=== PATIENT | female | born 1960 | race African-American/Black ===

== ENCOUNTER → 2016-11-05 | Outpatient (CLI) | payer OTHER ==
[~2016-11-05] MED LIST: AMITRIPTYLINE H25 M4 PO; ARIMIDEX1 MG PO; AROMASIN25 MG PO; CALCIUM 600 +1 EAC1 PO; COLACE 100 MG100 MG PO; CYMBALTA20 MG PO; DIAZEPAM 10 MG10 M1 PO; ENDOCET 7.5-321 EACH PO; EXCEDRIN MIGRA1 EAC1 PO; FLONASE 0.05%50 MCG NASAL; KEFLEX500 MG PO; LASIX 40 MG TAB40 M2 PO; LEVAQUIN 500 M500 MG PO; MOBIC15 MG PO; NEURONTIN 300300 M1 PO; NORCO 5-325 TA1 EACH PO; OMEPRAZOLE40 MG PO; OXECTA5 MG PO; PHENERGAN 25 MG25 M1 PO; POTASSIUM20 PO; PREDNISONE 20 M20 M1 PO; PROAIR HFA8.5 GM INH; PULMICORT0.25 MG/3 INH; QVAR8.7 G1 INH; TRAMADOL 50 MG50 MG PO; VITAMIN D1000 UNI1 PO; VITAMIN D22000 UNIT PO; ZANTAC 150MG T150 M1 PO; ZOFRAN ODT4 MG PO; [UNRECOGNIZED DRUG - OTHER]; [UNRECOGNIZED DRUG - REMARK] PO
== END ==
LOC: RAD 09:55
DX: K59.00 Constipation, unspecified (principal)

== ENCOUNTER 2017-12-23 11:32 | Emergency (ER) | payer OTHER ==
[~2017-12-23] VITALS: Ht 154.9 cm; Wt 98.0 kg
[2017-12-23 12:48] LABS: HEMATOCRIT 41.1 % (37.0-47.0); HEMOGLOBIN 13.5 gm/dL (12.0-15.0); MCH 28.6 pg (26.0-34.0); MCHC 32.8 g/dL (28.0-37.0); MCV 87.3 fL (80.0-100.0); RBC 4.71 mil/uL (4.20-5.00); RDW 14.3 % (10.5-14.5); WBC 5.5 thou/uL (4.0-11.0)
[2017-12-23 12:56] LABS: CALCIUM 9.5 mg/dL (8.5-10.1); CREATININE 0.8 mg/dL (0.6-1.0); POTASSIUM 3.8 mmol/L (3.5-5.1)
[2017-12-23 13:10] LABS: ALBUMIN 3.7 g/dL (3.4-5.0); TOTAL BILIRUBIN 0.3 mg/dL (<0.1-1.0); TOTAL PROTEIN 7.5 g/dL (6.4-8.2)
[2017-12-23 14:00] LABS: URINE BILIRUBIN NEGATIVE (Negative); URINE BLOOD NEGATIVE (Negative); URINE CLARITY CLEAR; URINE COLOR YELLOW; URINE GLUCOSE-RANDOM* NEGATIVE (Negative); URINE KETONES NEGATIVE (Negative); URINE LEUKOCYTES-REFLEX NEGATIVE (Negative); URINE NITRITE-REFLEX NEGATIVE (Negative); URINE PROTEIN (DIPSTICK) NEGATIVE (Negative); URINE SPECIFIC GRAVITY 1.015 (1.005-1.035); URINE UROBILINOGEN 0.2 E.U./dl (0.2-1.0)
[2017-12-23] MEDS ORDERED: CYCLOBENZAPRINE5 MG PO (14:03)
[2017-12-23] MEDS ORDERED: NORCO 10-325 T1 EACH PO (14:03)
== END 2017-12-23 14:40 | disposition home or self-care (01) ==
LOC: ER 11:32
PROVIDERS: Physician Assistant
DX: S33.101A Dislocation of unspecified lumbar vertebra, initial encounter (principal); K21.9 Gastro-esophageal reflux disease without esophagitis; J45.909 Unspecified asthma, uncomplicated; F32.9 Major depressive disorder, single episode, unspecified; M79.7 Fibromyalgia; E89.0 Postprocedural hypothyroidism; Z90.13 Acquired absence of bilateral breasts and nipples; Z88.5 Allergy status to narcotic agent; R10.9 Unspecified abdominal pain; X58.XXXA Exposure to other specified factors, initial encounter; Y93.89 Activity, other specified; Y92.89 Other specified places as the place of occurrence of the external cause; Y99.8 Other external cause status

== ENCOUNTER 2018-09-13 09:31 | Emergency (ER) | payer OTHER ==
[~2018-09-13] VITALS: Ht 154.9 cm; Wt 99.3 kg
[~2018-09-13 09:31] MED LIST changes: +CYCLOBENZAPRINE5 MG PO; +NORCO 10-325 T1 EACH PO
[2018-09-13 09:45] LABS: ABSOLUTE NEUTROPHILS 2.7 thou/uL (1.4-8.2); EOSINOPHILS 1.9 % (0.0-3.0); HEMATOCRIT 40.9 % (37.0-47.0); HEMOGLOBIN 13.6 gm/dL (12.0-15.0); LYMPHOCYTES 46.5 % (24.0-44.0); MCH 28.4 pg (26.0-34.0); MCHC 33.3 g/dL (28.0-37.0); MCV 85.5 fL (80.0-100.0); MONOCYTES 6.2 % (1.0-8.0); PLATELET COUNT 175 thou/uL (150-400); POLYS 44.4 % (36.0-66.0); RBC 4.78 mil/uL (4.20-5.00); WBC 6.1 thou/uL (4.0-11.0)
[2018-09-13 09:52] LABS: CALCIUM 9.4 mg/dL (8.5-10.1); CREATININE 0.9 mg/dL (0.6-1.0); POTASSIUM 4.1 mmol/L (3.5-5.1)
[2018-09-13 09:56] LABS: URINE BILIRUBIN NEGATIVE (Negative); URINE BLOOD NEGATIVE (Negative); URINE CLARITY CLEAR; URINE COLOR YELLOW; URINE GLUCOSE-RANDOM* NEGATIVE (Negative); URINE KETONES NEGATIVE (Negative); URINE LEUKOCYTES NEGATIVE (Negative); URINE NITRITE NEGATIVE (Negative); URINE PROTEIN (DIPSTICK) NEGATIVE (Negative); URINE SPECIFIC GRAVITY 1.025 (1.005-1.035); URINE UROBILINOGEN 0.2 E.U./dl (0.2-1.0)
[2018-09-13 09:58] LABS: ALBUMIN 3.9 g/dL (3.4-5.0); TOTAL BILIRUBIN 0.3 mg/dL (<0.1-1.0); TOTAL PROTEIN 7.5 g/dL (6.4-8.2)
[2018-09-13] MEDS ORDERED: ZANTAC 150MG T150 MG PO (12:31)
[2018-09-13] MEDS ORDERED: ONDANSETRON HCL4 M2 PO (12:31)
[2018-09-13 12:55] VITALS: BP 135/64
== END 2018-09-13 12:56 | disposition home or self-care (01) ==
LOC: ER 09:31
PROVIDERS: Emergency Medicine
DX: R10.13 Epigastric pain (principal); R10.12 Left upper quadrant pain; R10.11 Right upper quadrant pain; R11.2 Nausea with vomiting, unspecified; J45.909 Unspecified asthma, uncomplicated; F32.9 Major depressive disorder, single episode, unspecified; K21.9 Gastro-esophageal reflux disease without esophagitis; G47.30 Sleep apnea, unspecified; M79.7 Fibromyalgia; Z91.041 Radiographic dye allergy status; Z88.5 Allergy status to narcotic agent; Z88.8 Allergy status to other drugs, medicaments and biological substances; Z90.13 Acquired absence of bilateral breasts and nipples; Z90.710 Acquired absence of both cervix and uterus; Z90.89 Acquired absence of other organs; Z87.442 Personal history of urinary calculi; Z98.890 Other specified postprocedural states

== ENCOUNTER → 2018-10-29 | Outpatient (CLI) | payer OTHER ==
[~2018-10-29] VITALS: Ht 154.9 cm; Wt 98.0 kg
[~2018-10-29] MED LIST changes: +COREG25 MG PO; +ONDANSETRON HCL4 M2 PO; +RANITIDINE 150150 M1 PO; +SYMBICORT160 MCG/4. INH; +VENTOLIN HFA 1818 GM INH; +ZANTAC 150MG T150 MG PO
--- NOTE | 2018-10-30 08:14 | P ---
[facility] [place] [address] PROCEDURE REPORT Name: HOMER ARREDONDO Room #: REG [facility]#: [id number] Admission: 10/29/18 ������������������ Attend Phys: Gregorio Ortega MD Discharge: ������������������ Date of : 56 Report #: [id number] THIS REPORT FOR: //name// CC: Brayden Ortega OUTPATIENT UPPER ENDOSCOPY BRIEF HISTORY: The patient is a 58-year-old woman with complaints of dysphagia and painful swallowing. She takes ranitidine twice daily for reflux symptoms. PREOPERATIVE DIAGNOSIS: Dysphagia and odynophagia with reflux symptoms. POSTOPERATIVE DIAGNOSES: 1. Small hiatus hernia. 2. Grade A erosive esophagitis. 3. Mild erythematous antral gastritis. MEDICATIONS: Deep sedation with propofol per anesthesia. SPECIMEN: Biopsies of gastritis. ESTIMATED BLOOD LOSS: 3 mL. PROCEDURE: EGD with biopsy and Becker dilation. FINDINGS: Prior to propofol sedation, the procedure of upper endoscopy was discussed with the patient as well as potential risks and its complications. She indicates she understands and desires to proceed. DESCRIPTION OF PROCEDURE: With the patient in the left lateral decubitus position, the Olympus video endoscope was inserted in the cervical esophagus under direct vision without difficulty. Examination of this organ through its entire length revealed normal esophageal mucosa down to the squamocolumnar junction. A few erosions were seen at the squamocolumnar junction. No ulcers were identified. Findings were consistent with grade A esophagitis. The scope was advanced and a 2-3 cm sliding type hiatus hernia was seen. The mucosa in the hernia was unremarkable. Examination of distal stomach revealed a patchy erythematous gastritis. No ulcers or erosions were seen. There was no evidence of outlet obstruction. Upon retroflexion, no mass lesions were seen. The pylorus, duodenal bulb and postbulbar duodenal sweep were inspected and noted to be unremarkable. The scope was drawn back into the stomach and about to zero in to take biopsies, the patient desaturated requiring respiratory support with anesthesia. The Ambu bag was used. An oral airway was inserted and subsequently nasal airway was inserted. The patient's saturation stabilized and we resumed the procedure. The scope was reinserted. Multiple biopsies were [facility] [address] [place] [address] PROCEDURE REPORT Name: HOMER ARREDONDO Room #: [facility]#: [id number] Admission: 10/29/18 ������������������ Attend Phys: Gregorio Ortega MD Discharge: ������������������ Date of : 56 Report #: [id number]. Also although stricturing was not seen, her esophagus was dilated with passage of 50-Spanish Becker dilator. CONDITION OF THE PATIENT UPON DISCHARGE: Following procedure, the patient drowsy, aroused, conversant and will be discharged home when fully ambulatory. INSTRUCTIONS TO THE PATIENT AND FAMILY AT THE TIME OF DISCHARGE: She has symptoms and does have a few erosions in the esophagus consistent with esophagitis. We will have her start omeprazole initially 40 mg twice daily. If she does well, after a week she may reduce to 40 mg once daily. She also may use the ranitidine on an as needed basis for breakthrough symptoms. She was dilated today and she will return on an as needed basis for dilation due to symptoms of recurrent dysphagia. She will return to the care of Dr. Brayden Cheung and return to see me as needed. ��������������������������������������������� <ELECTRONICALLY SIGNED> ���������������������������������������� By: Gregorio Ortega MD ��������������������������������������������� 10/30/18 0814 1049 0037 Gregorio Ortega MD /nt
--- NOTE | 2018-11-02 16:11 | PATH ---
[facility] [address] [place] [address] PATHOLOGY RPT PROCEDURE Name: HOMER ARREDONDO Room #: REG [facility]#: [id number] ������������������ Admission: 10/29/18 ������������������ Date of : 56 Discharge: Report #: [id number] Path Case #: [id number] [facility] Accession Number: [id number] . 01 Material submitted: . GASTRITIS R/O H PYLORI . 01 Clinical history: . Preop DX: Dysphagia, painful swallowing Postop DX: Gastritis, dysphagia R/O H. pylori . 02 Diagnosis: Gastric mucosa, gastritis rule out H. pylori, endoscopic biopsy: - Mild chronic inflammation. - Negative for intestinal metaplasia or atrophy. - Negative for Helicobacter pylori (properly controlled immunohistochemical stain performed). (IUV:ux interaction designer; 11/02/2018) MBPaolo/11/02/2018 . 02 Electronically signed: . Indy Mattson MD, Pathologist NPI- [id number] . 01 Gross description: . Received in formalin labeled "Homer Arredondo, gastritis R/O H. pylori," is a segment of pale caballero soft tissue measuring 0.9 x 0.2 x 0.2 cm in greatest dimensions. The specimen is submitted entirely in cassette A1. (DAC; 10/30/2018) XDC/XDC . 02 Pathologist provided ICD-10: K29.50 . 02 CPT . 033367, C03757 Specimen Comment: A courtesy copy of this report has been sent to Specimen Comment: [phone], . Specimen Comment: Report sent to / DR LARA Performed at: [address] [id number] MD Bry Galo MD Phone: [phone] Performed at: 02 [facility] [address] [place] [address] PATHOLOGY RPT PROCEDURE Name: HOMER ARREDONDO Room #: REG [facility].#: [id number] ������������������ Admission: 10/29/18 ������������������ Date of : 56 Discharge: Report #: [id number] Path Case #: [id number] [address] [place] [id number] MD Indy Mattson MD Phone: [phone]
== END | disposition home or self-care (01) ==
LOC: GI 10-22 18:05
DX: K29.50 Unspecified chronic gastritis without bleeding (principal); K22.10 Ulcer of esophagus without bleeding; K44.9 Diaphragmatic hernia without obstruction or gangrene; J45.909 Unspecified asthma, uncomplicated; G47.33 Obstructive sleep apnea (adult) (pediatric); J43.9 Emphysema, unspecified; I48.91 Unspecified atrial fibrillation; M79.7 Fibromyalgia; K21.9 Gastro-esophageal reflux disease without esophagitis; Z85.3 Personal history of malignant neoplasm of breast; Z79.01 Long term (current) use of anticoagulants; Z98.0 Intestinal bypass and anastomosis status; Z95.2 Presence of prosthetic heart valve; Z85.038 Personal history of other malignant neoplasm of large intestine; Z90.710 Acquired absence of both cervix and uterus; Z98.890 Other specified postprocedural states; Z79.899 Other long term (current) drug therapy; Z87.442 Personal history of urinary calculi
CPT/HCPCS: 62110; 62900

== ENCOUNTER 2018-12-18 13:24 | Emergency (ER) | payer OTHER ==
[~2018-12-18] VITALS: Ht 154.9 cm; Wt 97.1 kg
[2018-12-18 14:32] LABS: HEMATOCRIT 39.8 % (37.0-47.0); HEMOGLOBIN 13.3 gm/dL (12.0-15.0); MCH 28.6 pg (26.0-34.0); MCHC 33.4 g/dL (28.0-37.0); MCV 85.8 fL (80.0-100.0); RBC 4.64 mil/uL (4.20-5.00); RDW 14.2 % (10.5-14.5); WBC 6.6 thou/uL (4.0-11.0)
[2018-12-18 14:41] LABS: ANION GAP 7 mmol/L (7-16); BUN 15 mg/dL (7-18); CHLORIDE 106 mmol/L (98-107); CO2 28 mmol/L (21-32); GLUCOSE 85 mg/dL (74-106); SODIUM 141 mmol/L (136-145)
[2018-12-18 14:51] LABS: ALBUMIN 3.5 g/dL (3.4-5.0); SGOT 15 U/L (15-37); SGPT 23 U/L (30-65); TOTAL BILIRUBIN 0.3 mg/dL (<0.1-1.0); TOTAL PROTEIN 7.3 g/dL (6.4-8.2); TROPONIN-I <0.06 ng/mL (<0.06)
--- NOTE | 2018-12-18 15:58 | EKG ---
[place] [address] [facility] [place] [address] ELECTROCARDIOGRAM REPORT Name: HOMER ARREDONDO Room #: [facility]#: [id number] ������������������ Admission: 12/18/18 ������������������ Attend Phys: Discharge: ������������������ Date of : 56 Report #: [id number] ����������������������������������������������������������������� [id number] THIS REPORT FOR: //name// [facility] ED Test Date: 2018-12-18 Test Time: 13:34:14 Pat Name: HOMER ARREDONDO Department: Room: Gender: F Manager Hair: HEMANTH : 1960 Requested By: Ирина De Jesus Order Number: [id number] MD: Mark Redd Measurements Intervals [place] Rate: 89 P: 55 [place]: 173 QRS: 26 QRSD: 86 T: 52 QT: 367 QTc: 447 Interpretive Statements Sinus rhythm Abnormal R-wave progression, early transition Compared to ECG 11/14/2015 11:26:34 No significant changes Electronically Signed On 12-18-2018 15:58:25 CDT by Mark Redd [email or web address] ��������������������������������������������� <ELECTRONICALLY SIGNED> ���������������������������������������� By: Mark Redd MD ��������������������������������������������� 12/18/18 1558 1334 1334 Mark Redd MD /NIECY
[2018-12-18] MEDS ORDERED: ULTRAM 50MG TAB50 MG PO (16:11)
[2018-12-18] MEDS ORDERED: MEDROLDOSEPACK PO (16:11)
[2018-12-18] MEDS ORDERED: NORFLEX100 MG PO (16:11)
[2018-12-18] MEDS ORDERED: HYDROCODONE-AP1 EAC6 PO (16:20)
[2018-12-18 16:23] VITALS: BP 136/83
== END 2018-12-18 16:23 | disposition home or self-care (01) ==
LOC: ER 13:24
PROVIDERS: Physician Assistant
DX: R07.89 Other chest pain (principal); J45.909 Unspecified asthma, uncomplicated; K21.9 Gastro-esophageal reflux disease without esophagitis; G47.30 Sleep apnea, unspecified; Z87.442 Personal history of urinary calculi; M79.7 Fibromyalgia; J44.9 Chronic obstructive pulmonary disease, unspecified; G43.909 Migraine, unspecified, not intractable, without status migrainosus; I48.91 Unspecified atrial fibrillation; Z88.5 Allergy status to narcotic agent; Z88.8 Allergy status to other drugs, medicaments and biological substances; Z90.13 Acquired absence of bilateral breasts and nipples; Z91.041 Radiographic dye allergy status; Z85.3 Personal history of malignant neoplasm of breast; Z90.710 Acquired absence of both cervix and uterus; Z98.890 Other specified postprocedural states

== ENCOUNTER 2020-01-10 15:55 | Emergency (ER) | payer OTHER ==
[~2020-01-10] VITALS: Ht 154.9 cm; Wt 98.9 kg
[~2020-01-10 15:55] MED LIST changes: +HYDROCODONE-AP1 EAC6 PO; +MEDROLDOSEPACK PO; +NORFLEX100 MG PO; +ULTRAM 50MG TAB50 MG PO
[2020-01-10] MEDS ORDERED: PREDNISONE 20 M20 MG PO (18:05)
[2020-01-10] MEDS ORDERED: TYLENOL WITH CO1 TA1 PO (18:05)
[2020-01-10] MEDS ORDERED: PERCOCET PO (18:07)
[2020-01-10 18:32] VITALS: BP 161/61
== END 2020-01-10 18:33 | disposition home or self-care (01) ==
LOC: ER 15:55
DX: M54.41 Lumbago with sciatica, right side (principal); M51.37 Other intervertebral disc degeneration, lumbosacral region; K21.9 Gastro-esophageal reflux disease without esophagitis; M79.7 Fibromyalgia; J44.9 Chronic obstructive pulmonary disease, unspecified; G43.909 Migraine, unspecified, not intractable, without status migrainosus; I48.91 Unspecified atrial fibrillation; Z85.3 Personal history of malignant neoplasm of breast; Z90.711 Acquired absence of uterus with remaining cervical stump; Z90.89 Acquired absence of other organs; Z95.2 Presence of prosthetic heart valve; Z87.442 Personal history of urinary calculi; Z85.038 Personal history of other malignant neoplasm of large intestine; Z79.899 Other long term (current) drug therapy; Z91.041 Radiographic dye allergy status; Z88.5 Allergy status to narcotic agent; Z88.8 Allergy status to other drugs, medicaments and biological substances; W18.30XA Fall on same level, unspecified, initial encounter; Y93.01 Activity, walking, marching and hiking; Y92.89 Other specified places as the place of occurrence of the external cause; Y99.8 Other external cause status